=== PATIENT | male | born 1965 | race Caucasian/White ===

== ENCOUNTER 2017-01-19 12:00 | Inpatient (IN) | payer MEDICAID ==
[~2017-01-19] VITALS: Ht 175.3 cm; Wt 100.7 kg
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
--- NOTE | ~2017-01-19 | PN ---
Unit #: [id number] #: [id number] Patient: ROXANNE ALCALA [id number] [facility] [address] [place] [address] [id number] I MR#: [id number] NAME: ROXANNE ALCALA ROOM: [facility] Age: 51 Sex: M Admission Date: 01/19/2017 : 1965 Attending Physician: Yamila Dickson M.D. Admitting Physician: Yamila Dickson M.D. Primary Care Physician: Generic Doctor Not In System [facility] PROGRESS NOTES DATE 01/21/2017 DISCUSSION Mr. Alcala is a 51-year-old white male with alcohol dependence and mood disorder who was seen today and chart was reviewed and case was discussed with the staff. having distress or discomfort and was laying in his bed though has been polite and pleasant, cooperative with treatment recommendations and has been taking medications and tolerating them fairly well with no reported side effects. MENTAL STATUS EXAMINATION Middle-aged white male who was casually dressed with fair personal hygiene and appears to be in no acute distress or discomfort. He was awake and alert on interaction with intact orientation. His mood was anxious with congruent affect. He denies any suicidal or homicidal ideations and also denies any auditory or visual hallucinations. His insight and judgement remains slightly impaired. TREATMENT PLAN 1. Will continue on his current medications and treatment protocol. Will monitor his response to the medications and make further adjustments as needed. 2. Will continue to follow up. Dictated by... Jacquelin Taylor/hunter TD: 01/21/2017 19:58 JOB #: [id number] Unit #: [id number] #: [id number] Patient: ROXANNE ALCALA PROGRESS NOTES Page 1 of 1 X Yamila Dickson MD PROGRESS NOTE
--- NOTE | ~2017-01-19 | PN ---
Unit #: [id number] #: [id number] Patient: ROXANNE ALCALA [id number] [facility] [address] [place] [address] [id number] I MR#: [id number] NAME: ROXANNE ALCALA ROOM: [facility] Age: 51 Sex: M Admission Date: 01/19/2017 : 1965 Attending Physician: Yamila Dickson M.D. Admitting Physician: Yamila Dickson M.D. Primary Care Physician: Melvin Doctor Not In System [facility] PROGRESS NOTES DATE January 22, 2017 DISCUSSION Mr. Alcala is a 51-year-old white male, with alcoholism, who was seen today and chart was reviewed and the case was discussed with the staff. He has been anxious, withdrawn, and seclusive to himself. Meanwhile, he has been cooperative with the treatment recommendations and he has been taking the medications and tolerating them fairly well with no reported side effects. MENTAL STATUS EXAMINATION Middle-aged white male, who was casually dressed with fair personal hygiene and appears to be in some distress and discomfort. He was awake and alert with impaired attention and concentration. His mood is anxious with a congruent affect. He denies any suicidal or homicidal ideations, and also denies any auditory or visual hallucinations. His insight and judgment remain slightly impaired. TREATMENT PLAN 1. We will continue him on his current medications and treatment protocol, and will monitor his response to the medications, and make further adjustments as needed. 2. We will continue to followup. Dictated by... Jacquelin Taylor/amador TD: 01/23/2017 08:47 JOB #: [id number] Unit #: [id number] #: [id number] Patient: ROXANNE ALCALA PROGRESS NOTES Page 1 of 1 X Yamila Dickson MD PROGRESS NOTE
--- NOTE | ~2017-01-19 | PA ---
Unit #: [id number] #: [id number] Patient: ROXANNE ALCALA [id number] [facility] [address] [place] [address] [id number] I MR#: [id number] NAME: ROXANNE ALCALA ROOM: P173 Age: 51 Sex: M Admission Date: 01/19/2017 : 1965 Date of Assessment: Attending Physician: Yamila Dickson M.D. Admitting Physician: Yamila Dickson M.D. Primary Care Physician: Melvin Doctor Not In System PSYCHIATRIC ASSESSMENT DATE OF SERVICE 01/20/2017. IDENTIFYING DATA Mr. Alcala is a 51-year-old white male, who is a resident of [place], [place], and was transferred to from [facility] on a voluntary basis. CHIEF COMPLAINT "I want to quit using heroin and drinking." HISTORY OF PRESENT ILLNESS Mr. Alcala is a 51-year-old white male, who brought himself to the emergency room reporting drinking alcohol and using heroin and wanted to get detox and has a long history of substance abuse and it has been negatively impacting his life and that he needs to get help. 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 He does report not getting along well with others and having poor relationships and has been reporting increasing depression, anxiety, irritability, restlessness, and feelings of hopelessness and helplessness, but denies any suicidal ideations, intent, or plan. SUBSTANCE ABUSE HISTORY The patient reports a history of alcohol, cannabis, cocaine, opioids, amphetamine, and benzodiazepine abuse, and currently, opioids and alcohol appear to be his drug of choice as he reports that he has been drinking 2 pints of whiskey a day and has been using IV heroin "as much as I can get access to." PAST PSYCHIATRIC HISTORY The patient has had a history of chemical dependency treatment in the past; however, currently he is not active in any treatment program, is not seeing a psychiatrist, and is not taking any psychotropic medications. PAST MEDICAL HISTORY History of bilateral inguinal hernia. ALLERGIES Codeine. PERSONAL AND SOCIAL HISTORY Unit #: [id number] #: [id number] Patient: ROXANNE ALCALA A 51-year-old white male, who reports that he is and and has poor social support system and lives alone and has not been able to work. MENTAL STATUS EXAMINATION Middle-aged white male, who was casually dressed with fair personal hygiene, appears to be in no acute distress or discomfort. He was awake and alert on interaction with intact orientation to time, place, and person. His mood was anxious and depressed with a congruent affect. His speech was slow and restricted in content. His thought processes were disorganized with some looseness of associations and flight of ideas. His insight and judgment remain significantly impaired. DIAGNOSTIC IMPRESSION Psychiatric: Alcohol dependence, moderate, in acute withdrawals; opioid dependence, moderate, in acute withdrawals; and alcohol-induced mood disorder. Medical: Bilateral inguinal hernia. Stressors: Moderate psychosocial stressors. TREATMENT PLAN 1. The patient has presented with a history of mood disorder and substance abuse and has been decompensating and will need inpatient hospitalization for safety and stabilization. We will start him back on his home medications and we will adjust the medications and monitor response. 2. Supportive therapy was provided to the patient. 3. Safe, structured, and nourishing environment will be provided. ESTIMATED LENGTH OF STAY 4 to 5 days. ABILITY TO HELP SELF Limited. WILLINGNESS TO HELP SELF The patient appears to be willing to help self. STRENGTHS 1. Communicative. 2. Cooperative. PROBLEMS 1. Chronic dysphoric symptoms. 2. Chronic chemical dependency. 3. Poor social support system. DISCHARGE CRITERIA This will be contingent upon the patient's ability to show resolution of his depression and anxiety and his ability to stay safe to himself, particularly after discharge from the hospital. Dictated by... Jacquelin Taylor/miquel Unit #: [id number] #: [id number] Patient: ROXANNE ALCALA TD: 01/20/2017 19:19 JOB #: [id number] PSYCHIATRIC ASSESSMENT Page 1 of 1 X Yamila Dickson MD PSYCHIATRIC ASSESSMENT
--- NOTE | ~2017-01-19 | DS ---
Unit #: [id number] #: [id number] [facility] [id number] [facility] [address] [place] [address] [id number] I MR#: [id number] NAME: ROXANNE ALCALA ROOM: 73 Age: 51 Sex: M Admission Date: 01/19/2017 : 1965 Discharge Date: 01/24/2017 Attending Physician: Yamila Dickson M.D. Primary Care Physician: Generic Doctor Not In System DISCHARGE SUMMARY IDENTIFYING DATA Mr. Alcala is a 51-year-old white male, who is a resident of [place], [place], and was transferred to us from [facility] on a voluntary basis. DISCHARGE DIAGNOSES Psychiatric: Alcohol dependence, moderate, in acute withdrawals; opioid dependence, moderate, in acute withdrawals; and alcohol-induced mood disorder. Medical: Bilateral inguinal hernia. Stressors: Mild psychosocial stressors. HISTORY OF PRESENT ILLNESS Please see initial psychiatric evaluation for details. PAST PSYCHIATRIC HISTORY Please see initial psychiatric evaluation for details. PAST MEDICAL HISTORY Please see initial psychiatric evaluation for details. HOSPITAL COURSE The patient was admitted to the adult chemical dependency unit at [facility] and was oriented to the hospital environment. Routine p.r.n. medications were initiated, and he was started back on his home medications and detox protocol was initiated and he was closely monitored. He was taking the medications regularly and was tolerating them fairly well and was able to show a decent and therapeutic response with improvement in depression and anxiety and as such, it was decided that he will be discharged home and will continue treatment on an outpatient basis. DISCHARGE MEDICATIONS None. DISCHARGE CONDITION Stable. PROGNOSIS Fair. Dictated by... Yamila Dickson M.D. Unit #: [id number] #: [id number] Patient: ROXANNE ALCALA IAA/modl TD: 01/23/2017 19:16 JOB #: [id number] DISCHARGE SUMMARY Page 1 of 1 X Yamila Dickson MD DISCHARGE SUMMARY
[2017-01-20 10:49] LABS: URINE APPEARANCE CLEAR; URINE BILIRUBIN NEG (NEG); URINE BLOOD TRACE (NEG); URINE COLOR DK YELLOW; URINE GLUCOSE NEG (NEG); URINE KETONE NEG (NEG); URINE LEUKOCYTE ESTERASE NEG (NEG); URINE NITRATE NEG (NEG); URINE PH 7.5 (5-8); URINE PROTEIN NEG (NEG); URINE SPECIFIC GRAVITY 1.045 (1.003-1.035)
[2017-01-20 10:53] LABS: URINE BACTERIA AUWI NEG (NEGATIVE); URINE SQUAMOUS EPITHELIAL CELL NONE SEEN /[HPF]
[2017-01-20 11:00] LABS: AMPHETAMINE NEG (NEG); BARBITURATES NEG (NEG); BENZODIAZEPINES POS (NEG); COCAINE NEG (NEG); MARIJUANA POS (NEG); OPIATES NEG (NEG); TRICYCLIC ANTIDEPRESSANTS NEG (NEG); U METHADONE NEG (NEG)
[2017-01-21 10:44] LABS: BASOPHIL# 0.1 X10e3 (0-0.3); EOSINOPHIL# 0.3 X10e3 (0-0.7); EOSINOPHIL% 4.8 % (0.0-7.0); HEMATOCRIT 44.6 % (38.0-50.0); HEMOGLOBIN 14.7 gm/dL (13.0-16.0); LYMPHOCYTE# 2.1 X10e3 (1.0-3.5); MEAN PLATELET VOLUME 8.8 FL (6.5-11.5); MONOCYTE# 0.6 X10e3 (0-1.0); MONOCYTE% 10.9 % (3.0-12.0); NEUTROPHIL# 2.4 X10e3 (1.5-7.1); NEUTROPHIL% 44.3 % (40-75); PLATELET COUNT 157 X10e3 (140-420); RED CELL DISTRIBUTION WIDTH 13.2 % (11.0-15.5); WHITE BLOOD COUNT 5.5 X10e3 (4.0-10.5)
[2017-01-21 10:52] LABS: ALBUMIN SERUM 2.9 g/dL (3.5-5.0); BILIRUBIN,TOTAL 0.7 mg/dL (0.2-2.0); CALCIUM SERUM 8.6 mg/dL (8.4-10.2); CREATININE SERUM 0.8 mg/dL (0.6-1.4); GLOM FILT RATE Estimated 104.2 mL/min (>60); POTASSIUM 4.1 mmol/L (3.5-5.1); PROTEIN TOTAL SERUM 5.5 g/dL (6.0-8.3)
[2017-01-21 11:02] LABS: DIFF IND NO
== END 2017-01-24 09:46 | disposition home or self-care (01) | DRG 897 ==
LOC: P1E 19:42
PROVIDERS: Psychiatry & Neurology Psychiatry
DX: F10.239 Alcohol dependence with withdrawal, unspecified (principal); F11.23 Opioid dependence with withdrawal; E66.01 Morbid (severe) obesity due to excess calories; F10.24 Alcohol dependence with alcohol-induced mood disorder; K40.20 Bilateral inguinal hernia, without obstruction or gangrene, not specified as recurrent
CPT/HCPCS: 80053; 80307; 81003; 85025; 86592